=== PATIENT | female | born 1985 | race Caucasian/White ===

== ENCOUNTER 2016-08-05 11:51 | Emergency (ER) | payer MEDICAID ==
[~2016-08-05] VITALS: Ht 157.5 cm; Wt 87.7 kg
[~2016-08-05 11:51] MED LIST: LEVO.025 PO; PERC10TA27 PO; TRAM50 PO
[2016-08-05 11:56] VITALS: BP 130/78; PULSE 84; RESP 16; TEMP 99; O2SAT 98
[2016-08-05] MEDS ORDERED: CEPH-460 PO (12:32)
--- NOTE | 2016-08-05 12:33 | PD ---
HPI Chief Complaint: Back/ Neck Pain or Injury Time Seen by Provider: 12:16 Travel History International Travel<30 days: No Contact w/Intl Traveler<30days: No Traveled to known affect area: No History of Present Illness HPI The patient is a 31-year-old female who presents emergency department for enlarged lymph nodes along the anterior aspect the neck bilaterally of one days duration. The patient states her symptoms started yesterday with swelling and enlargement of lymph nodes along the left lateral aspect of the neck. She then developed swelling along the right anterior aspect of her neck earlier today. The lymph nodes are mobile but tender. The patient denies any fever, chills, sweats, sore throat, or ear pain. The patient does own a cat, 3 years old, but denies any recent cat scratches or Bites. The patient does not believe she has a history of mononucleosis. The patient denies any known history of cancer, smokes on a social basis. The patient denies any swelling along the axilla or inguinal region. The patient's symptoms are moderate, there are no known alleviating or exacerbating factors. PFSH Past Medical History Hx Anticoagulant Therapy: No Anxiety: Yes Diminished Hearing: No Thyroid Disease: Yes (hypo quit taking meds) Tetanus Vaccination: Unknown Influenza Vaccination: No ?: Not Dilation and Curettage (D&C): Yes (x1) Past Surgical History Section: Yes Social History Alcohol Use: Yes ( BEERS socially) Tobacco Use: Yes (1/4 Pack every 1-2 months/socially) Substance Use: Yes (hx of THC -denies current use) Allergies-Medications (Allergen,Severity, Reaction): Coded Allergies: No Known Allergies (Unverified , 08/05/16) Reported Meds & Prescriptions Reported Meds & Active Scripts Active No Active Prescriptions or Reported Medications Review of Systems Except as stated in HPI: all other systems reviewed are Neg General / Constitutional: No: Fever HENT: Positive: Neck Pain, No: Sore Throat, Congestion Respiratory: No: Cough Gastrointestinal: No: Nausea, Vomiting, Diarrhea, Abdominal Pain Musculoskeletal: No: Myalgias, Arthralgias Skin: No Rash Physical Exam Narrative GENERAL: Awake, alert, pleasant 31-year-old female who appears her stated age and is in no acute respiratory distress. SKIN: Warm and dry. HEAD: Atraumatic. Normocephalic. EYES: Pupils equal and round. No scleral icterus. No injection or drainage. ENT: No nasal bleeding or discharge. Mucous membranes pink and moist. No erythema or exudate noted. Tympanic membranes are translucent and EACs are clear. NECK: Trachea midline. No JVD. Enlarged lymph nodes palpable, mobile, and tender along the anterior aspect of the sternocleidomastoid muscles bilaterally. No lymphadenopathy noted of the axilla bilaterally or along the supraclavicular area bilaterally. MUSCULOSKELETAL: No obvious deformities. No clubbing. No cyanosis. No edema. NEUROLOGICAL: Awake and alert. No obvious cranial nerve deficits. Motor grossly within normal limits. Normal speech. PSYCHIATRIC: Appropriate mood and affect; insight and judgment normal. Data Data Last Documented VS Vital Signs Date Time Temp Pulse Resp B/P Pulse Ox O2 Delivery O2 Flow Rate FiO2 08/05/16 12:10 71 16 08/05/16 11:56 99.0 130/78 98 MDM Medical Decision Making Medical Screen Exam Complete: Yes Emergency Medical Condition: Yes Medical Record Reviewed: Yes Differential Diagnosis Differential diagnoses includes cervical lymphadenitis, Scratch disease, toxoplasmosis, Miles-Huitron virus, cytomegalovirus, tuberculosis, cancer, viral syndrome. Narrative Course The patient will be treated with a course of Keflex, is advised to monitor the lymph node size, and tenderness. She is advised to follow up with hematology/ oncology if symptoms persist longer than 3-4 weeks. Patient agrees and understands. Return if symptoms worsen or progress. Diagnosis Primary Impression: Cervical lymphadenitis Patient Instructions: General Instructions Additional Instructions: Medications as directed. Follow-up with the hematology/oncology if symptoms persist longer than 3-4 weeks. Med/Other Pt SpecificInfo: Prescription(s) given Scripts Cephalexin (Keflex)500 Mg Xcy588 Mg PO Q6H 10 Days Ref 0 Prov:Omid Lopez MD 08/05/16 Disposition: 01 DISCHARGE HOME Condition: Stable Omid Lopez MD Aug 05, 2016 12:33
== END 2016-08-05 12:44 | disposition home or self-care (01) ==
LOC: PHED 11:51
DX: I88.9 Nonspecific lymphadenitis, unspecified (principal); E07.9 Disorder of thyroid, unspecified; Z72.0 Tobacco use
CPT/HCPCS: 99283

== ENCOUNTER 2017-05-05 17:03 | Emergency (ER) | payer MEDICAID ==
[~2017-05-05] VITALS: Ht 157.5 cm; Wt 91.8 kg
[~2017-05-05 17:03] MED LIST changes: +CEPH-460 PO; -LEVO.025 PO; -PERC10TA27 PO; -TRAM50 PO
[2017-05-05 17:08] VITALS: BP 143/75; PULSE 68; RESP 16; TEMP 98.2; O2SAT 100
[2017-05-05] MEDS ORDERED: MEDR4PAK PO (17:27)
[2017-05-05] MEDS ORDERED: ROBA500T PO (17:27)
[2017-05-05] MEDS ORDERED: LIDOCAINE HCL 5% PATCH T-DERMAL ONE (17:30)
--- NOTE | 2017-05-05 17:33 | PD ---
HPI Chief Complaint: Pain: Acute or Chronic Time Seen by Provider: 17:16 Travel History International Travel<30 days: No Contact w/Intl Traveler<30days: No Traveled to known affect area: No History of Present Illness HPI 31-year-old female presents to the emergency department complaining of right posterior shoulder pain for 3 days. Patient denies inciting events. States that her pain is a constant mild ache that increases with movement and occasional 'pinching' pain that takes her breath away. She denies any injuries previously to the back. States she does have some neck injury previously but denies neck pain at this time. States she has been taking ibuprofen and Tylenol without relief. Patient denies fever, chills, chest pain, shortness of breath, or trauma. States that the pain occasionally radiates to her right mid axilla region and describes it as a sharp pain. She is concerned that this is a serious condition and decided to come to the emergency department today. PFSH Past Medical History Hx Anticoagulant Therapy: No Anxiety: Yes Diminished Hearing: No Thyroid Disease: Yes (hypo quit taking meds) ?: Not LMP: irreg Dilation and Curettage (D&C): Yes (x1) Past Surgical History Section: Yes Social History Alcohol Use: Yes ( BEERS socially) Tobacco Use: Yes (1/4 Pack every 1-2 months/socially) Substance Use: Yes (hx of THC -denies current use) Allergies-Medications (Allergen,Severity, Reaction): Coded Allergies: No Known Allergies (Unverified Allergy, Unknown, 05/05/17) Reported Meds & Prescriptions Reported Meds & Active Scripts Active Medrol Dosepak (Methylprednisolone) 4 Mg Dspk 4 Mg PO DIRECTED Per Pharmacist direction Robaxin (Methocarbamol) 500 Mg Tab 500 Mg PO TID 5 Days Review of Systems Except as stated in HPI: all other systems reviewed are Neg Physical Exam Narrative GENERAL: Well-nourished SKIN: Focused skin assessment warm/dry. HEAD: Atraumatic. Normocephalic. EYES: Pupils equal and round. No scleral icterus. No injection or drainage. ENT: No nasal bleeding or discharge. Mucous membranes pink and moist. NECK: Trachea midline. No JVD. CARDIOVASCULAR: Regular rate and rhythm. No murmur appreciated. RESPIRATORY: No accessory muscle use. Clear to auscultation. Breath sounds equal bilaterally. MUSCULOSKELETAL: No obvious deformities. No clubbing. No cyanosis. No edema. Right Mid thoracic paraspinal muscles actively spasming with palpation. muscle tension noted as well. Unable to reproduce pain upon palpation of the chest wall NEUROLOGICAL: Awake and alert. No obvious cranial nerve deficits. Motor grossly within normal limits. Normal speech. Upper extremities neurovascularly intact PSYCHIATRIC: Appropriate mood and affect; insight and judgment normal. Data Data Last Documented VS Vital Signs Date Time Temp Pulse Resp B/P (MAP) Pulse Ox O2 Delivery O2 Flow Rate FiO2 05/05/17 17:08 98.2 68 16 143/75 (97) 100 Orders Orders Lidocaine 5% Patch.12 Hr (Lidoderm 5% Pa (05/05/17 17:30) Ed Discharge Order (05/05/17 17:33) [facility] Medical Decision Making Medical Screen Exam Complete: Yes Emergency Medical Condition: Yes Differential Diagnosis Muscle spasm versus fracture versus contusion Narrative Course 31-year-old female presents to the emergency department complaining of right posterior shoulder pain for 3 days. Patient denies inciting events. States that her pain is a constant mild ache that increases with movement and occasional 'pinching' pain that takes her breath away. She denies any injuries previously to the back. States she does have some neck injury previously but denies neck pain at this time. States she has been taking ibuprofen and Tylenol without relief. Patient denies fever, chills, chest pain, shortness of breath, or trauma. States that the pain occasionally radiates to her right mid axilla region and describes it as a sharp pain. She is concerned that this is a serious condition and decided to come to the emergency department today. Physical exam consistent with muscle spasms and radiculopathy. Vital signs stable Offered chest x-ray however, patient agreed to wait. Reassured patient. Patient has muscle spasms of the right thoracic paraspinous muscles likely irritating nerve roots causing a dermatomal type of radiculopathy to the mid axilla. Patient discharged with muscle relaxer and Medrol Dosepak. Eyes patient to follow up with her primary care physician within 2 days. Return to the ED for persistent or worsening pain. Diagnosis Primary Impression: Radiculopathy Qualified Codes: M54.14 - Radiculopathy, thoracic region Referrals: Primary Care Physician Additional Instructions: Follow-up with her primary care physician within 2 days Use heat for symptom relief. Performed stretches her upper extremities and back daily. Continue Tylenol and ibuprofen per package instructions Scripts Methylprednisolone Dosepak (Medrol Dosepak) 4 Mg Dspk 4 MG PO DIRECTED, #1 DSPK 0 Refills Per Pharmacist direction Prov: Harlan Mcnally MD 05/05/17 Methocarbamol (Robaxin) 500 Mg Tab 500 MG PO TID for Muscle Spasm for 5 Days, TAB 0 Refills Prov: Harlan Mcnally MD 05/05/17 Disposition: 01 DISCHARGE HOME Condition: Stable Brandee Conrad May 05, 2017 17:33
== END 2017-05-05 17:45 | disposition home or self-care (01) ==
LOC: PHEFT 17:03
DX: M54.14 Radiculopathy, thoracic region (principal); M62.838 Other muscle spasm; E07.9 Disorder of thyroid, unspecified; Z72.0 Tobacco use; Z86.59 Personal history of other mental and behavioral disorders
CPT/HCPCS: 99284